=== PATIENT | male | born 1980 | race Caucasian/White ===

== ENCOUNTER 2017-03-19 23:07 | Emergency (ER) | payer BC ==
[2017-03-19] MEDS ORDERED: Aspirin Low Dose CHEW TAB* 81 MG PO ONE (23:45)
[2017-03-20 00:21] LABS: Hematocrit 48 % (42-52); Hemoglobin 16.2 g/dl (14.0-18.0); Mean Corpuscular HGB Conc 34 g/dl (31-36); Mean Corpuscular Hemoglobin 29 pg (27-31); Mean Corpuscular Volume 86 fL (80-94); Mean Platelet Volume 8 um3 (7.4-10.4); Red Cell Distribution Width 13 % (10.5-15)
[2017-03-20 00:38] LABS: Albumin 4.3 g/dL (3.2-5.2); Calcium 9.6 mg/dL (8.6-10.3); EGFR African American 98.5 (>60); EGFR Non-African American 76.6 (>60); Globulin 2.8 g/dL (2-4); Potassium 3.6 mmol/L (3.5-5.0); Total Bilirubin 0.4 mg/dL (0.2-1.0); Total Protein 7.1 g/dL (6.4-8.9)
--- NOTE | 2017-03-20 01:15 | ED ---
Trip Johnson Aidan, scribed for Kelvin Levine on 03/20/17 at 0001 . Hypertension - HPI Summary HPI Summary: 36 y/o male presents to the ED with a complaint of acute, moderate episodes of HTN. He was recently placed on triamterene-HCTZ and has been taking it for the past 2 days. After starting the medication, he has had acute, moderate episodes of dizziness, palpitations, and diaphoresis and SOB on exertion. Currently, he takes Lorazepam and Valsartan. While in the ED, his blood pressure was initially 149/84. It then dropped to 128/84. 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 - Onset/Duration: Started Hours Ago, Resolved - Pt is no longer dizzy and does not currently have HTN Timing: Intermittent, Lasting Hours Aggravating Factor(s): Exertion - causes diaphoresis and SOB Alleviating Factor(s): Other - unknown Associated Signs & Symptoms: SOB - on exertion, Other: - diaphoresis on exertion , palpitations, dizziness - Risk Factors Cardiac Risk Factors: Hypertension - Allergies/Home Medications Allergies/Adverse Reactions: Allergies Allergy/AdvReac Type Severity Reaction Status Date / Time No Known Allergies Allergy Verified 01/03/16 12:10 PMH/Surg Hx/FS Hx/Imm Hx Endocrine/Hematology History: Denies: Hx Diabetes, Hx Thyroid Disease Cardiovascular History: Reports: Hx Hypertension Respiratory History: Denies: Hx Asthma, Hx Chronic Obstructive Pulmonary Disease (COPD) GI History: Denies: Hx Ulcer Psychiatric History: Reports: Hx Anxiety - Surgical History Surgery Procedure, Year, and Place: WISDOM TOOTH EXTRACTION, AGE 19 Infectious Disease History: No Infectious Disease History: Reports: Hx Shingles Denies: Hx Hepatitis, Hx Human Immunodeficiency Virus (HIV), History Other Infectious Disease, Traveled Outside the [place] in Last 30 Days - Family History Known Family History: Positive: Hypertension - Social History Occupation: Employed Full-time Lives: With Family Alcohol Use: Rare Substance Use Type: Reports: None Smoking Status (MU): Never Smoked Tobacco Review of Systems Positive: Skin Diaphoresis. Negative: Fever, Chills, Fatigue Eyes: Negative ENT: Negative Positive: Palpitations, Other - reported HTN. Negative: Chest Pain Positive: Shortness Of Breath. Negative: Cough Gastrointestinal: Negative Genitourinary: Negative Musculoskeletal: Negative Skin: Negative Neurological: Negative Psychological: Normal All Other Systems Reviewed And Are Negative: Yes Physical Exam Triage Information Reviewed: Yes Vital Signs On Initial Exam: Initial Vitals Temp Pulse Resp BP Pulse Ox 97.8 F 88 18 149/84 97 03/19/17 23:09 03/19/17 23:09 03/19/17 23:09 03/19/17 23:09 03/19/17 23:09 Vital Signs Reviewed: Yes Appearance: Positive: Well-Appearing, No Pain Distress Skin: Positive: Warm, Skin Color Reflects Adequate Perfusion, Dry Head/Face: Positive: Normal Head/Face Inspection Eyes: Positive: EOMI, RANDA ENT: Positive: Normal ENT inspection Neck: Positive: Supple, Nontender Respiratory/Lung Sounds: Positive: Clear to Auscultation, Breath Sounds Present Cardiovascular: Positive: Normal, RRR, Pulses are Symmetrical in both Upper and Lower Extremities Abdomen Description: Positive: Nontender, Soft Bowel Sounds: Positive: Present Musculoskeletal: Positive: Normal, Strength/ROM Intact Neurological: Positive: Normal, Sensory/Motor Intact, Alert, Oriented to Person Place, Time Psychiatric: Positive: Normal, Affect/Mood Appropriate AVPU Assessment: Alert - [place] Coma Scale Coma Scale Total: 15 Diagnostics - Vital Signs Vital Signs Temp Pulse Resp BP Pulse Ox 03/19/17 23:45 97.8 F 80 16 128/84 97 03/19/17 23:09 97.8 F 88 18 149/84 97 - Laboratory Result Diagrams: 03/20/17 00:04 03/20/17 00:04 Lab Statement: Any lab studies that have been ordered have been reviewed, and results considered in the medical decision making process. - EKG EKG 0019 Cardiac Rate: NL - 79 BPM EKG Rhythm: Sinus Rhythm EKG Interpretation: NORMAL SINUS RHYTHM Hypertension Course/Dx - Course Course Of Treatment: 36 y/o male presents to the ED with a complaint of acute episodes of dizziness S/P medication change. He just started taking triamterene- HCTZ. Imaging reviewed. Labs reviewed. The patient will be discharged home with a diagnosis of HTN. His blood pressure in the ED was normal. Recommended follow up with PCP and with the ED if symptoms worsen. - Diagnoses Provider Diagnoses: Hypertension Discharge - Discharge Plan Condition: Stable Disposition: HOME Discharge Disposition Comment: Please follow up with primary care within 3 days and return if sx worsen Patient Education Materials: Hypertension (ED) Referrals: Aris Troy MD [Primary Care Provider] - The documentation as recorded by the Trip donald Aidan accurately reflects the service I personally performed and the decisions made by , Kelvin Levine.
[2017-03-20 01:22] VITALS: BP 134/73
--- NOTE | 2017-03-20 07:41 | RAD ---
HISTORY: Shortness of breath COMPARISONS: September 02, 2013 VIEWS: 2: Frontal dual-energy and lateral views of the chest. FINDINGS: CARDIOMEDIASTINAL SILHOUETTE: The cardiomediastinal silhouette is normal. HUMBERTO: The humberto are normal. PLEURA: The costophrenic angles are sharp. No pleural abnormalities are noted. LUNG PARENCHYMA: The lung volumes are low. The lungs are clear. ABDOMEN: The upper abdomen is clear. There is no subphrenic gas. BONES AND SOFT TISSUES: No bone or soft tissue abnormalities are noted. OTHER: None. IMPRESSION: LOW LUNG VOLUMES. NO ACTIVE CARDIOPULMONARY DISEASE.
== END 2017-03-20 01:26 | disposition home or self-care (01) ==
LOC: ED 23:07
DX: I10 Essential (primary) hypertension (principal); R00.2 Palpitations; R06.02 Shortness of breath; R61 Generalized hyperhidrosis
CPT/HCPCS: 36415; 71020; 80053; 83735; 84484; 85025; 93005; 99282

== ENCOUNTER 2017-04-20 15:31 | Emergency (ER) | payer BC ==
[2017-04-20 16:01] VITALS: BP 131/84
--- NOTE | 2017-04-20 16:06 | UC ---
Throat Pain/Nasal Vince HPI - HPI Summary HPI Summary: 36 YEAR OLD PRESENTS WITH COMPLAINS OF SORE THROAT AND SINUS CONGESTION. - History of Current Complaint Chief Complaint: UCGeneralIllness Stated Complaint: ST - 3 WKS Time Seen by Provider: 04/20/17 16:04 Onset/Duration: Gradual Onset Severity: Moderate Pain Scale Used: 0-10 Numeric - 5 - Allergies/Home Medications Allergies/Adverse Reactions: Allergies Allergy/AdvReac Type Severity Reaction Status Date / Time No Known Allergies Allergy Verified 04/20/17 16:01 PMH/Surg Hx/FS Hx/Imm Hx - Surgical History Surgical History: Yes Surgery Procedure, Year, and Place: WISDOM TOOTH EXTRACTION, AGE 19 - Family History Known Family History: Positive: None, Hypertension - Social History Alcohol Use: Rare Substance Use Type: None Smoking Status (MU): Never Smoked Tobacco Review of Systems Constitutional: Negative Skin: Negative Eyes: Negative ENT: Sore Throat, Nasal Discharge, Sinus Congestion Respiratory: Negative Cardiovascular: Negative Gastrointestinal: Negative Genitourinary: Negative Motor: Negative Neurovascular: Negative Musculoskeletal: Negative Neurological: Negative Psychological: Negative All Other Systems Reviewed And Are Negative: Yes Physical Exam Triage Information Reviewed: Yes Vital Signs: Initial Vital Signs Temp 36.2 C 04/20/17 15:57 Pulse 80 04/20/17 15:57 Resp 16 04/20/17 15:57 BP 131/84 04/20/17 15:57 Pulse Ox 97 04/20/17 15:57 Eye Exam: Normal ENT Exam: Normal ENT: Positive: Pharyngeal erythema, Nasal congestion, Nasal drainage Dental Exam: Normal Neck exam: Normal Neck: Positive: 1 Respiratory Exam: Normal Cardiovascular Exam: Normal Abdominal Exam: Normal Musculoskeletal Exam: Normal Musculoskeletal: Positive: ROM Limited @, Other: - RIGHT LATERAL FOOT SPRAIN Neurological Exam: Normal Psychological Exam: Normal Skin Exam: Normal Throat Pain/Nasal Course/Dx - Differential Dx/Diagnosis Provider Diagnoses: SINUS CONGESTION. ALLERGIC RHINNITIS Discharge - Discharge Plan Condition: Stable Disposition: HOME Prescriptions: Amoxicillin CAP* [Amoxicillin 500 MG CAP*] 500 mg PO TID #30 cap LoraTADine TAB(NF) [Claritin 10 MG TAB(NF)] 10 mg PO DAILY #30 tab Magic M W2 Beau/Maal/Nyst/Lido* 15 ml SWISH SPIT QID #120 ml Patient Education Materials: Pharyngitis (ED) Referrals: Aris Troy MD [Primary Care Provider] - If Needed
== END 2017-04-20 16:38 | disposition home or self-care (01) ==
LOC: UCCORT 15:31
DX: J30.9 Allergic rhinitis, unspecified (principal); R09.81 Nasal congestion
CPT/HCPCS: 87651; 99212; G0463

== ENCOUNTER 2017-05-03 16:24 | Emergency (ER) | payer BC ==
[2017-05-03 16:28] VITALS: BP 150/100
[2017-05-03] MEDS ORDERED: Fluorescein Sodium TOPICAL* 1 MG TEST OPHTHALMIC ONE (17:06)
[2017-05-03] MEDS ORDERED: BSS OPTH.SOL* BTL OPHTHALMIC ONE (17:06)
[2017-05-03] MEDS ORDERED: Tetracaine 0.5% OPTH.SOL 4 ML* 1 DROP BTL RIGHT EYE ONE (17:07)
--- NOTE | 2017-05-03 17:12 | UC ---
Eye Complaint HPI - HPI Summary HPI Summary: ciomplaint of bilateral eye itchy after mowing the lawn today flushed both of his eyes then the right eye became swollen and extremelty itchy has some purulent fluid coming out of his eye - History of Current Complaint Hx Obtained From: Patient <Carolee Moran - Last Filed: 05/03/17 17:28> <Marleen Quintero - Last Filed: 05/03/17 18:37> - History of Current Complaint Chief Complaint: UCEye Stated Complaint: EYE COMPLAINT Time Seen by Provider: 05/03/17 16:51 - Allergies/Home Medications Allergies/Adverse Reactions: Allergies Allergy/AdvReac Type Severity Reaction Status Date / Time No Known Allergies Allergy Verified 04/20/17 16:01 PMH/Surg Hx/FS Hx/Imm Hx Previously Healthy: Yes Endocrine History: Dyslipidemia Cardiovascular History: Hypertension Psychological History: Anxiety - Surgical History Surgical History: Yes Surgery Procedure, Year, and Place: WISDOM TOOTH EXTRACTION, AGE 19 - Family History Known Family History: Positive: None, Hypertension Negative: Cardiac Disease, Diabetes - Social History Occupation: Employed Full-time Lives: With Family Alcohol Use: Rare Substance Use Type: None Smoking Status (MU): Never Smoked Tobacco <Carolee Moran - Last Filed: 05/03/17 17:28> Review of Systems Constitutional: Negative Skin: Negative Eyes: Drainage, Eye Redness ENT: Negative Respiratory: Negative Cardiovascular: Negative Gastrointestinal: Negative Genitourinary: Negative Motor: Negative Neurovascular: Negative Musculoskeletal: Negative Neurological: Negative Psychological: Negative All Other Systems Reviewed And Are Negative: Yes <Carolee Moran - Last Filed: 05/03/17 17:28> Physical Exam Triage Information Reviewed: Yes Appearance: No Pain Distress, Well-Nourished Vital Signs: Initial Vital Signs Temp 97.8 F 05/03/17 16:25 Pulse 97 05/03/17 16:25 Resp 16 05/03/17 16:25 BP 150/100 05/03/17 16:25 Pulse Ox 100 05/03/17 16:25 Vital Signs Reviewed: Yes Eyes: Positive: Conjunctiva Inflamed - right, Other: - right eye observed under fluorisceine no foreign objects , corneal abrasions visulaized ENT: Positive: Pharynx normal, TMs normal Neck: Positive: No Lymphadenopathy Respiratory: Positive: Lungs clear, Normal breath sounds, No respiratory distress, No accessory muscle use Cardiovascular: Positive: RRR, No Murmur, Pulses Normal Abdomen Description: Positive: Nontender, Soft Bowel Sounds: Positive: Present Musculoskeletal: Positive: No Edema Neurological: Positive: Alert Psychological Exam: Normal Skin Exam: Normal <Carolee Moran - Last Filed: 05/03/17 17:28> Vital Signs: Initial Vital Signs Temp 97.8 F 05/03/17 16:25 Pulse 97 05/03/17 16:25 Resp 16 05/03/17 16:25 BP 150/100 05/03/17 16:25 Pulse Ox 100 05/03/17 16:25 <Marleen Quintero - Last Filed: 05/03/17 18:37> Eye Complaint Course/Dx - Course Course Of Treatment: exam completed. will treat for conjunctivitis- no foreign objects or abrasions seen - Differential Dx/Diagnosis Differential Diagnosis/HQI/PQRI: Conjunctivitis, Corneal Abrasion, Foreign Body Provider Diagnoses: conjunctivitis <Carolee Moran - Last Filed: 05/03/17 17:28> Discharge <DeanCarolee - Last Filed: 05/03/17 17:28> <Marleen Quintero - Last Filed: 05/03/17 18:37> - Discharge Plan Condition: Stable Disposition: HOME Prescriptions: Tobramycin (Ophth) [Tobrex] 0.3 % RIGHT EYE Q4HR #1 barry Patient Education Materials: Conjunctivitis (ED) Referrals: Aris Troy MD [Primary Care Provider] - Additional Instructions: CONJUNCTIVITIS What is Conjunctivitis? Conjunctivitis is redness and swelling of the conjunctiva, the thin transparent layer that lines the inner eyelid and covers the white part of the eye. The three main types of conjunctivitis are infectious, allergic, and chemical. The infectious type, commonly called "pink eye," is caused by a contagious virus or by bacteria. Your body's allergies to pollen, cosmetics, animals or fabrics often bring on allergic conjunctivitis. Irritants like air pollution, noxious fumes and chlorine in swimming pools may produce the chemical form. Symptoms Might Include: More tearing Eye pain Redness in the eyes Gritty feeling in the eyes Itching of the eye Blurred vision Sensitivity to light Crusts that form on the eyelid overnight Treatment Recommendations: Use eye drops or ointment as directed. Do not rub or touch your eyes. Wash your hands frequently. Use cool compresses to relieve pain and itching. Prevention: Do not share eye make-up. Replace eye make-up frequently. Do not share towels, washcloths, etc. Do not share eye drops. Do not wear contact lenses while you have conjunctivitis. Call Your Doctor or Return Here IF: Your symptoms worsen or do not improve in 3 to 4 days. You have problems with, or loss of, your vision. You have a significant increase in pain. You have any new symptoms that worry you. Attestation Statement User Type: Provider - I was available for consult. This patient was seen by the [facility]. The patient was not presented to, seen by, or examined by me. -Gabriela <Marleen Quintero - Last Filed: 05/03/17 18:37>
== END 2017-05-03 17:30 | disposition home or self-care (01) ==
LOC: UCEAST 16:24
DX: H10.9 Unspecified conjunctivitis (principal)
CPT/HCPCS: 99212; A9270-GY; G0463

== ENCOUNTER 2017-07-28 20:28 | Emergency (ER) | payer BC ==
[2017-07-28 20:40] VITALS: BP 170/107
[2017-07-28] MEDS ORDERED: Ketorolac INJ* 30 MG/ML 1 ML VIAL IM ONE (21:32)
--- NOTE | 2017-07-28 21:46 | UC ---
Shoulder Pain HPI - HPI Summary HPI Summary: left shoulder pain today no injury now unable to abduct he uis right handed - History of Current Complaint Chief Complaint: UCUpperExtremity Stated Complaint: LEFT SHOULDER PAIN Hx Obtained From: Patient Onset/Duration: Gradual Onset, Lasting Hours Timing: Constant Severity Initially: Moderate Severity Currently: Moderate Pain Intensity: 7 Pain Scale Used: 0-10 Numeric Character: Aching, Throbbing Aggravating Factor(s): Movement, Lifting, External Rotation, Abduction Alleviating Factor(s): Rest Associated Signs And Symptoms: Positive: Negative Related History: Dominant Hand Right - Allergies/Home Medications Allergies/Adverse Reactions: Allergies Allergy/AdvReac Type Severity Reaction Status Date / Time No Known Allergies Allergy Verified 07/28/17 20:40 PMH/Surg Hx/FS Hx/Imm Hx Previously Healthy: Yes - DENISE Cardiovascular History: Hypertension - Surgical History Surgical History: Yes Surgery Procedure, Year, and Place: WISDOM TOOTH EXTRACTION, AGE 19 - Family History Known Family History: Positive: Hypertension Negative: Cardiac Disease, Diabetes - Social History Alcohol Use: Rare Substance Use Type: None Smoking Status (MU): Never Smoked Tobacco Review of Systems Constitutional: Negative Skin: Negative Eyes: Negative ENT: Negative Respiratory: Negative Cardiovascular: Negative Gastrointestinal: Negative Genitourinary: Negative Motor: Negative Neurovascular: Negative Musculoskeletal: Arthralgia Neurological: Negative Psychological: Negative Is Patient Immunocompromised?: No All Other Systems Reviewed And Are Negative: Yes Physical Exam Triage Information Reviewed: Yes Appearance: Well-Appearing, No Pain Distress, Well-Nourished Vital Signs: Initial Vital Signs Temp 97.2 F 07/28/17 20:33 Pulse 79 07/28/17 20:33 Resp 22 07/28/17 20:33 BP 170/107 07/28/17 20:33 Pulse Ox 96 07/28/17 20:33 Vital Signs Reviewed: Yes Eyes: Positive: Conjunctiva Clear ENT: Positive: Hearing grossly normal. Negative: Nasal congestion, Trismus, Muffled/hoarse voice Neck: Positive: Supple, Nontender Respiratory: Positive: Lungs clear, Normal breath sounds, No respiratory distress, No accessory muscle use Musculoskeletal: Positive: ROM Limited @ - right shoulder/tender priox humerus/ pain with abduction and ext rotation Neurological: Positive: Alert, Muscle Tone Normal Psychological Exam: Normal Skin: Positive: rashes Diagnostics - Radiology No standard instances Xray Interpretation: Positive (See Comments) - calcific tendonitis Radiology Interpretation Completed By: ED Physician Shoulder Course/Dx - Differential Dx/Diagnosis Provider Diagnoses: calcific tendonitis left shoulder Discharge - Discharge Plan Condition: Stable Disposition: HOME Patient Education Materials: Calcific Tendinitis (ED) Referrals: Ned Azar MD [Medical Doctor] - 3 Days Aris Troy MD [Primary Care Provider] - Additional Instructions: motrin 200mg 3 pills 4x day with food for pain heat massage pendulum shoulder motions as discussed recheck with ortho
--- NOTE | 2017-07-28 22:03 | RAD ---
Indication: Aching pain LEFT shoulder worsening over the day. Painful limited range of motion. Comparison: No relevant prior exams available on the [facility] for comparison. Technique: Internal rotation AP, external rotation Grashey, scapular Y, axillary views LEFT shoulder Report: Normal acromioclavicular and glenohumeral joint alignment. Negative for fracture Subtle calcific tendinopathy at the level of the supraspinatus tendon insertion. Unremarkable soft tissue contours. IMPRESSION: Calcific tendinopathy of the rotator cuff.
== END 2017-07-28 22:03 | disposition home or self-care (01) ==
LOC: UCCORT 20:28
DX: M75.32 Calcific tendinitis of left shoulder (principal)
CPT/HCPCS: 93005; 96372; 99211; G0463; J1885

== ENCOUNTER 2018-04-28 11:33 | Emergency (ER) | payer BC ==
--- OUTSIDE RECORDS SUMMARY | 2018-04-28 12:00 | XMS REPORT ---
:1980 External Reference #:[id number] Author Organization [facility] Address [address] [place] [address] Phone [phone] Care Team Providers Name Role Phone Aris Troy MD Primary Care Physician Unavailable Payers Type Date Identification Numbers Payment Provider Subscriber Health Maintenance Policy Number: [facility] ([facility]) [id number] PayID: [id number] [place] [id number] Problems Date Description Provider Status Onset: 2015 Difficulty breathing Regi Perry MD Active Onset: 2015 Obesity Regi Perry MD Active Onset: 02/02/2016 Obstructive sleep apnea syndrome Regi Perry MD Active Family History Date Family Member(s) Problem(s) Comments General Diverticulitis General Arthritis General Depression General Diabetes Type II General Hypertension General Ovarian Cancer General Melanoma Father Diabetes Type II Father Depression Father Arthritis Mother Hypertension Mother Ovarian Cancer Mother Melanoma Siblings 2 Siblings 2 brothers unknown health history Social History Type Date Description Comments Marital Status Lives With Spouse Lives With Son Occupation [employer] Occupation Currently Working Cigarette Use Never Smoked Cigarettes ETOH Use Rarely consumes alcohol Smoking Patient has never smoked Recreational Drug Use Denies Drug Use Daily Caffeine Consumes on average 1 cup of regular coffee per day Exercise Type/Frequency Exercises rarely Allergies, Adverse Reactions, Alerts Date Description Reaction Status Severity Comments 2015 Atenolol active 2015 Lisinopril active 11/27/2013 NKDA inactive Medications Medication Date Status Form Strength Qnty SIG Indications Ordering Provider Stephan Active Tablets 80mg 1 by mouth Unknown 016 every day Lorazepam Active Tablets 0.5mg as directed Unknown 016 Valsartan Active Tablets 80mg Take 1 Unknown 000 Tablet By Mouth Every Day Amlodipine Hx Tablets 10mg 1 by mouth Unknown Besylate 016 - every day 016 Vicodin Hx Tablets 5-300mg 60tabs take 1 po q Unknown 000 - 6 hours prn 014 Atenolol Hx Tablets 25mg 90tabs 1 po qd Unknown 000 - 016 Medications Administered in Office Medication Date Status Form Strength Qnty SIG Indications Ordering Provider Celestone 3 mg Administered Injection Ned Rommel and 3mg 017 MD Doe Vital Signs Date Vital Result Comment 04/11/2018 Height 74 inches 6'2" Weight 313.00 lb Heart Rate 72 /min BP Systolic Sitting 160 mmHg Lue large cuff BP Diastolic Sitting 112 mmHg Lue large cuff BP Systolic Recheck 150 mmHg Lue large cuff BP Diastolic Recheck 102 mmHg Lue large cuff Respiratory Rate 18 /min O2 % BldC Oximetry 95 % On Ra BMI (Body Mass Index) 40.2 kg/m2 08/03/2017 Height 74 inches 6'2" Weight 290.00 lb Heart Rate 71 /min BP Systolic Sitting 146 mmHg BP Diastolic Sitting 96 mmHg Respiratory Rate 18 /min Pain Level 3 BMI (Body Mass Index) 37.2 kg/m2 03/17/2016 Height 74 inches 6'2" Weight 300.00 lb Heart Rate 70 /min BP Systolic Sitting 152 mmHg BP Diastolic Sitting 89 mmHg Respiratory Rate 18 /min O2 % BldC Oximetry 98 % BMI (Body Mass Index) 38.5 kg/m2 02/02/2016 Height 74 inches 6'2" Weight 296.00 lb Heart Rate 88 /min BP Systolic 162 mmHg BP Diastolic 98 mmHg Respiratory Rate 14 /min O2 % BldC Oximetry 97 % BMI (Body Mass Index) 38.0 kg/m2 2015 Height 74 inches 6'2" Weight 302.25 lb Heart Rate 82 /min BP Systolic 160 mmHg BP Diastolic 110 mmHg BP Systolic Sitting 158 mmHg BP Diastolic Sitting 118 mmHg Respiratory Rate 16 /min O2 % BldC Oximetry 97 % BMI (Body Mass Index) 38.8 kg/m2 Neck Circumference in inches 18 11/27/2013 Height 74 inches 6'2" Weight 280.00 lb Heart Rate 88 /min BP Systolic Sitting 124 mmHg BP Diastolic Sitting 82 mmHg BMI (Body Mass Index) 35.9 kg/m2 Results Test Date Test Result H/L Range Note Comp Metabolic Panel 02/12/2018 Sodium 141 mmol/L 139-145 Potassium 4.0 mmol/L 3.5-5.0 Chloride 107 mmol/L 101-111 Co2 Carbon Dioxide 28 mmol/L 22-32 Anion Gap 6 mmol/L 2-11 Calcium 9.2 mg/dL 8.6-10.3 Albumin 4.5 g/dL 3.2-5.2 Total Bilirubin 0.60 mg/dL 0.2-1.0 Glucose 92 mg/dL 70-100 Blood Urea Nitrogen 16 mg/dL 6-24 Creatinine 0.98 mg/dL 0.67-1.17 BUN/Creatinine Ratio 16.3 8-20 Total Protein 6.8 g/dL 6.4-8.9 Globulin 2.3 g/dL 2-4 Albumin/Globulin Ratio 2.0 1-3 Alkaline Phosphatase 86 U/L 34-104 Alt 39 U/L 7-52 Ast 21 U/L 13-39 Egfr Non- 87.0 >60 Egfr 111.9 >60 1 Laboratory test finding 02/12/2018 LDH 163 U/L 140-271 C Reactive Protein 4.47 mg/L < 5.00 2 CBC Auto Diff 02/12/2018 White Blood Count 7.6 10^3/uL 3.5-10.8 Red Blood Count 5.36 10^6/uL 4.0-5.4 Hemoglobin 15.6 g/dL 14.0-18.0 Hematocrit 46 % 42-52 Mean Corpuscular Volume 85 fL 80-94 Mean Corpuscular Hemoglobin 29 pg 27-31 Mean Corpuscular HGB Conc 34 g/dL 31-36 Red Cell Distribution Width 13 % 10.5-15 Platelet Count 264 10^3/uL 150-450 Mean Platelet Volume 8.1 um3 7.4-10.4 Abs Neutrophils 4.8 10^3/uL 1.5-7.7 Abs Lymphocytes 2.0 10^3/uL 1.0-4.8 Abs Monocytes 0.6 10^3/uL 0-0.8 Abs Eosinophils 0.2 10^3/uL 0-0.6 Abs Basophils 0 10^3/uL 0-0.2 Abs Nucleated RBC 0 10^3/uL Granulocyte % 63.2 % 38-83 Lymphocyte % 26.2 % 25-47 Monocyte % 7.3 % High 0-7 Eosinophil % 2.8 % 0-6 Basophil % 0.5 % 0-2 Nucleated Red Blood Cells % 0.5 Laboratory test finding 02/12/2018 Erythrocyte Sed Rate 9 mm/Hr 0-14 Leukemia/Lymphoma Phenot 02/12/2018 Path Interpretation 2-8 (SEE NOTE) 3 Marker Path Interpret 9-15 Marker TNP Path Interpret > 16 Marker TNP BCR/Abl Trans 9:22 Fish 02/12/2018 BCR/abl (Fish) Result Summary Normal BCR/abl (Fish) Result Table See Comment 4 BCR/abl (Fish) Specimen Blood BCR/abl (Fish) Referral Reason See Comment 5 BCR/abl (Fish) Method See Comment 6 BCR/abl Results See Comment 7 BCR/abl (Fish) Interpretation See Comment 8 BCR/abl (Fish) Disclaimer See Comment 9 BCR/abl (Fish) Released By See Comment 10 Myeloprolif Neoplasm With 02/12/2018 MPNR Result see interpretati <SEE NOTE > 11 RFX MPNR Final Diagnosis See Comment 12 1 Because ethnic data is not always readily available, this report includes an eGFR for both -Americans and non- Americans. The National Kidney Disease Education Program (NKDEP) does not endorse the use of the MDRD equation for patients that are not between the ages of 18 and 70, are , have extremes of body size, muscle mass, or nutritional status, or are non- or non-. According to the National Kidney Foundation, irrespective of diagnosis, the stage of the disease is based on the level of kidney function: Stage Description GFR(mL/min/1.73 m(2)) 1 Kidney damage with normal or decreased GFR 90 2 Kidney damage with mild decrease in GFR 60-89 3 Moderate decrease in GFR 30-59 4 Severe decrease in GFR 15-29 5 Kidney failure <15 (or dialysis) 2 Acute inflammation: >10.00 3 FINAL DIAGNOSIS: Specimen Source: Peripheral blood Flow cytometry immunophenotypic analysis: No evidence of an immunophenotypically abnormal cell population. Interpretative data: Blasts: 0% of gated events Lymphocytes: 42% of gated events B-cells: 10% of lymphs; kappa:lambda within normal limits T-cells/NK cells: No aberrant population detected. Markers tested: CD3, CD10, CD16, CD19, CD34, CD45, kappa surface light chains, lambda surface light chains, 7-AAD. Quality Assessment: Acceptable Viability: Acceptable Viable lymphocytes (7-AAD): 100% Specimen received within validated guidelines. A Burr-Giemsa stained slide prepared from the flow cytometry specimen was examined for quality purposes. Electronically signed by: Tona Bain MD 02/14/18 1606 Technical component performed by: [address] [address] Film Numberer: Jak Mayes II, MD, PhD. 4 Abnormality Name Result Abn Cutoff (%) (%) t(9;22) ABL1/BCR fusion Normal <0.6 5 RESULT: D72.829- elevated white blood cell count, unspecified 6 Locus and probes [Strategy;#Nuclei;Class] 9q34(ABL1),22q11.2(BCR) [DFISH;500;ASR] Probe strategy includes: DFISH=dual color, double fusion. 7 nuc cathy(ABL1,BCR)x2[500] Of 500 nuclei, 0% had fusion of BCR and ABL1. 8 The result is within normal limits for the BCR and ABL1 gene regions. 9 Analyte Specific Reagent (ASR). This test was developed using an analyte specific reagent. Its performance characteristics were determined by [facility] in a manner consistent with CLIA requirements. This test has not been cleared or approved by the U.S. Food and Drug Administration. This FISH test does not rule out other chromosome abnormalities. 10 RESULT: Loan Jarquin M.D. Test Performed by: [address] [address] 11 see interpretation 12 Peripheral blood, JAK2 V617F mutation analysis: Negative for JAK2 V617F. Method summary - JAK2 V617F analysis: Quantitative, allele-specific polymerase chain reaction (PCR) assay was performed using extracted genomic DNA to evaluate for the point mutation causing JAK2 V617F. The analytic sensitivity of this assay has been determined at 0.06% (see [facility] Interpretive Handbook for method details). Peripheral blood, CALR mutation analysis, exon 9. Negative. No deletion or insertion was detected in CALR, exon 9. Method Summary - CALR: Exon 9 of CALR was amplified from genomic DNA by polymerase chain reaction (PCR). The size of the PCR product was analyzed by capillary electrophoresis on the THOR 3130xl Genetic Analyzer. The analytic sensitivity of this assay is approximately 6% for the majority of CALR mutations and is approximately 20% for the rare type 1-bp deletion (See [facility] Interpretive Handbook for details). Peripheral blood, MPL exon 10 mutation analysis: Negative. No mutation was detected in MPL, exon 10. Method summary - MPL exon 10 mutation analysis: Genomic DNA was extracted and Humphrey sequencing used to evaluate for mutations in MPL, exon 10 (see [facility] Interpretive Handbook for method details). The sensitivity of this assay is approximately 20%, such that samples containing lower percentages of mutated DNA will appear negative. Comment: Negative results for [id number], CALR exon 9, and MPL exon 10 mutations do not exclude the diagnosis of a myeloproliferative neoplasm. Correlation with clinical and morphologic finding is recommended for a definitive diagnosis. Samples containing mutations in these genes at levels below the analytical sensitivity of each assay may not be detected by these methods. If there are persistent unexplained erythrocytosis, JAK2 Exon 12 analysis could be considered (JAKXB or JAKXM) to rule out polycythemia vera (PV). Signing Pathologist: Hoang Snow M.D. ADDITIONAL INFORMATION This test was developed and its performance characteristics determined by [facility] in a manner consistent with CLIA requirements. This test has not been cleared or approved by the U.S. Food and Drug Administration. Test Performed by: [facility] - [address], [place] [address] Procedures Date CPT Code Description Status 08/03/2017 74678 Inject/Drain Joint/Bursa Major W/O US Completed 01/17/2016 59637 Sleep Study Unattended,HRT Rate,Oxygen Sat,Resp Completed Effort/Airflow 12/11/2013 90901 Rad Exam; Hand Limited Completed 11/27/2013 04793 Closed TX Metacarpal FX Single W/O Manipulation, Ea Completed Bone Encounters Type Date Location Provider CPT E/M Dx Office Visit 02/26/2018 [facility] Jessica Lockett M.D. 32130 D72.829 8:40a Of [facility] AT [place] [address]. Office Visit 02/12/2018 8:00a [facility] Jessica Lockett 84298 D72.829 Of [facility] Ranjith Office Visit 08/03/2017 9:00a [place] [address] M75.32 Of [facility] Office Visit 03/17/2016 9:15a [facility] [address] G47.33 Services Of [facility] E66.09 Office Visit 02/02/2016 9:30a [facility] [address] G47.33 Services Of [facility] E66.09 Office Visit 2015 9:30a [place] [address] R06.83 Services Of [facility] E66.09 Plan of Care Future Appointment(s):07/18/2018 2:15 pm - Leonarda Packer DNP, RN, DIRECTOR SUPPLIER QUALITY-BC at [facility] Services Of [facility]04/11/2018 - Leonarda Packer DNP, RN, DIRECTOR SUPPLIER QUALITY- BCG47.33 Obstructive sleep apnea (adult) (pediatric)Follow up:3 monthsRecommendations:Continue PAP device, Benefitting and compliant with treatment. Cleaning Wipe off mask daily (baby wipe-no scent, or warm water) Clean mask, tubing, filter, and water chamber weekly in mild no scent dish soap and water. Hang to dry. So-Clean is an option (not covered by insurance) If you have any sleepiness while driving you MUST avoid operating a vehicle or machinery. If you have difficulty with your equipment, or need to replace your mask or hoses, please contact your homecare agency. A weight change of 20 pounds or more may have an effect on your equipment; if you are experiencing problems please call for an appointment. If you have any further questions, please call the [facility] at [phone].i15.1 Secondary hypertension, unspecifiedRecommendations:Repeat BP 150/102: please consult with primary care If you have headache, check your blood pressure,if elevated do not take ibuprofen, naproxen (Advil or Aleve).Z68.41 Body mass index (BMI) 40.0-44.9 , adultReferral:Estrellita Robbins MD, Internal MedicineRecommendations: Medically supervised weight loss
--- NOTE | 2018-04-28 12:11 | UC ---
Back Pain HPI - HPI Summary HPI Summary: Patient felt a pop in his low back had some pain which resolved with rest and ibuprofen, was working, bent over felt a pop and had severe pain that radiated down the right leg. sitting is ok, standing and bending causes pain - History of Current Complaint Stated Complaint: LOW BACK PAIN Time Seen by Provider: 04/28/18 12:02 Hx Obtained From: Patient Onset/Duration: Sudden Onset, Lasting Days Timing: Constant Severity Initially: Moderate Severity Currently: Moderate Back Pain: Radiates To - right Character: Sharp, Aching, Spasmodic Aggravating Factor(s): Movement, Bending, Walking Alleviating Factor(s): Rest - Allergies/Home Medications Allergies/Adverse Reactions: Allergies Allergy/AdvReac Type Severity Reaction Status Date / Time No Known Allergies Allergy Verified 07/28/17 20:40 Home Medications: Home Medications Fluoxetine HCl [Prozac] 10 mg PO DAILY 04/28/18 [History Confirmed 04/28/18] PMH/Surg Hx/FS Hx/Imm Hx Previously Healthy: Yes - Surgical History Surgical History: Yes Surgery Procedure, Year, and Place: WISDOM TOOTH EXTRACTION, AGE 19 - Family History Known Family History: Positive: None, Hypertension Negative: Cardiac Disease, Diabetes - Social History Alcohol Use: Rare Substance Use Type: None Smoking Status (MU): Never Smoked Tobacco Review of Systems Constitutional: Negative Skin: Negative Eyes: Negative ENT: Negative Respiratory: Negative Cardiovascular: Negative Gastrointestinal: Negative Genitourinary: Negative Motor: Negative Neurovascular: Negative Musculoskeletal: Arthralgia, Decreased ROM, Myalgia Neurological: Negative Psychological: Negative Is Patient Immunocompromised?: No All Other Systems Reviewed And Are Negative: Yes Physical Exam Triage Information Reviewed: Yes Appearance: Well-Appearing, Pain Distress, Obese Vital Signs Reviewed: Yes Eye Exam: Normal ENT Exam: Normal Dental Exam: Normal Neck exam: Normal Respiratory Exam: Normal Respiratory: Positive: Chest non-tender, Lungs clear, Normal breath sounds Cardiovascular Exam: Normal Cardiovascular: Positive: RRR, No Murmur, Pulses Normal Abdominal Exam: Normal Abdomen Description: Positive: Nontender, No Organomegaly, Soft Bowel Sounds: Positive: Present Musculoskeletal: Positive: No Edema, ROM Limited @ - in flx and ext, rotation of luymbar spine Neurological Exam: Normal Psychological Exam: Normal Skin Exam: Normal Back Pain Course/Dx - Course Course Of Treatment: hx obtained, exam performed ,meds reviewed, xray obtained and is negative recommend PT patient states he prefers his chiropractor - Differential Dx/Diagnosis Differential Diagnosis/HQI/PQRI: Herniated Disc, Strain, Sprain Provider Diagnoses: low back pain, muscle strain Discharge - Sign-Out/Discharge Documenting (check all that apply): Patient Departure - Discharge Plan Condition: Stable Disposition: HOME Patient Education Materials: Low Back Strain (ED), Core Strengthening Exercises (GEN) Referrals: Aris Troy MD [Primary Care Provider] - Additional Instructions: 1. continue with the naproxen for pain and inflammation 2. I am including a handout of core strengthening exercises. 3. I recommend follow up with your chiropractor or Physical therapy if stretching is not helping. - Billing Disposition and Condition Condition: STABLE Disposition: Home
[2018-04-28 12:16] VITALS: BP 154/98
--- NOTE | 2018-04-28 13:00 | RAD ---
INDICATION: Low back pain with radiation down the right lower extremity COMPARISON: Similar radiograph dated June 15, 2015 TECHNIQUE: 2 views of the lumbar spine were obtained. FINDINGS: The vertebra are in normal alignment. No fracture is seen. Disc spaces appear maintained. IMPRESSION: No evidence of fracture or subluxation.
== END 2018-04-28 13:21 | disposition home or self-care (01) ==
LOC: UCCORT 11:33
DX: S39.012A Strain of muscle, fascia and tendon of lower back, initial encounter (principal); M54.5 Low back pain; X50.9XXA Other and unspecified overexertion or strenuous movements or postures, initial encounter; Y92.9 Unspecified place or not applicable
CPT/HCPCS: 72100; 99211; G0463

== ENCOUNTER 2018-05-20 17:43 | Emergency (ER) | payer BC ==
--- NOTE | 2018-05-20 18:17 | ED ---
Head Injury - HPI Summary HPI Summary: This is shabana Vazquez documenting for attending Quique Dangelo MD. This patient is a 37 year old M presenting to [facility] accompanied by his partner after an overhead door hit his head around noon today while at work. The patient rates the pain 5/10 in severity. Patient reports neck pain, near syncope , blurred vision in the left eye, STOUT, and dizziness. Patient denies numbness, weakness, and difficulty walking. - History Of Current Complaint Chief Complaint: EDHeadInjury Stated Complaint: HEAD & NECK INJURY Time Seen by Provider: 05/20/18 18:07 Hx Obtained From: Patient Mechanism Of Injury: Blunt Trauma Onset/Duration: Started Hours Ago, Still Present Onset of Pain: Immediate Severity Currently: Moderate Severity Initially: Moderate Pain Intensity: 5 Pain Scale Used: 0-10 Numeric Location of Head Injury: Diffuse Associated Signs And Symptoms: Negative - numbness, weakness, difficulty walking ,, Other: - neck pain, near syncope, blurred vision in the left eye, STOUT, and dizziness - Allergies/Home Medications Allergies/Adverse Reactions: Allergies Allergy/AdvReac Type Severity Reaction Status Date / Time No Known Allergies Allergy Verified 05/20/18 17:57 PMH/Surg Hx/FS Hx/Imm Hx Endocrine/Hematology History: Denies: Hx Diabetes, Hx Thyroid Disease Cardiovascular History: Reports: Hx Hypertension - ON MEDS Respiratory History: Denies: Hx Asthma, Hx Chronic Obstructive Pulmonary Disease (COPD) GI History: Denies: Hx Ulcer EENT History: Denies: Hx Deafness Neurological History: Reports: Other Neuro Impairments/Disorders - concussions Denies: Hx Developmental Delay Psychiatric History: Reports: Hx Anxiety - Surgical History Surgery Procedure, Year, and Place: WISDOM TOOTH EXTRACTION, AGE 19 Infectious Disease History: No Infectious Disease History: Reports: Hx Shingles Denies: Hx Clostridium Difficile, Hx Hepatitis, Hx Human Immunodeficiency Virus (HIV), Hx of Known/Suspected MRSA, Hx Tuberculosis, Hx Known/Suspected VRE , Hx Known/Suspected VRSA, History Other Infectious Disease, Traveled Outside the [place] in Last 30 Days - Family History Known Family History: Positive: Hypertension Negative: Cardiac Disease, Diabetes - Social History Alcohol Use: Rare Substance Use Type: Reports: None Smoking Status (MU): Never Smoked Tobacco Review of Systems Constitutional: Other - head injury Positive: Blurred Vision - left eye Positive: Other - neck pain Neurological: Other - dizziness Positive: Headache, Syncope - near All Other Systems Reviewed And Are Negative: Yes Physical Exam - Summary Physical Exam Summary: Appearance: Well appearing, no pain distress Skin: warm, dry, reflects adequate perfusion Head/face: no madrid signs, no raccoon eyes, there is a small scalp hematoma in the left apical region that is only noticeable because his head is shaved and even now it is diffcult to see Eyes: EOMI, RANDA, visual acuity reveals 20/30 left eye and 20/30 right eye. 20/ 20 with both eyes open ENT: normal ,no hemotympanum, Neck: supple, non-tender Respiratory: CTA, breath sounds present Cardiovascular: RRR, pulses symmetrical Abdomen: non-tender, soft Bowel Sounds: present Musculoskeletal: normal, strength/ROM intact Neuro: normal, sensory motor intact, A&Ox3, normal proprioception, gait is normal , cerebellar function is intact Triage Information Reviewed: Yes Vital Signs On Initial Exam: Initial Vitals Temp Pulse Resp BP Pulse Ox 100 F 74 16 178/102 97 05/20/18 17:50 05/20/18 17:50 05/20/18 17:50 05/20/18 17:50 05/20/18 17:50 Vital Signs Reviewed: Yes Diagnostics - Vital Signs Vital Signs Temp Pulse Resp BP Pulse Ox 05/20/18 17:50 100 F 74 16 178/102 97 - Laboratory Lab Statement: Any lab studies that have been ordered have been reviewed, and results considered in the medical decision making process. Head Injury Course/Dx Course Of Treatment: Patient with direct impact to the apical scalp with tiny cephalhematoma. No severe headaches but minor likely concussive symptoms. His vision is subjectively blurred patient is acuities are normal and symmetric. 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 He has neurologically normal at present with normal gait, cerebellar function. 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 He is off work this week due to vacation and was given concussion precautions. We find no indication for imaging with a GCS of 15 and only minor symptoms at this point. He has also over 6 hours from time of injury. - Diagnoses Provider Diagnoses: Closed head injury, Concussion Discharge - Sign-Out/Discharge Documenting (check all that apply): Patient Departure - Discharge Plan Condition: Good Disposition: HOME Patient Education Materials: Concussion (ED) Referrals: Aris Troy MD [Primary Care Provider] - Additional Instructions: Tylenol, ibuprofen as needed. Stay well-hydrated. Stay in a quite, darkened environment. Avoid fine print reading, computer screens or electronic devices. Return with severe headache, weakness, difficulty with walking, worse, new symptoms or other concerns as discussed. Follow up closely with your primary care physician this week. Report this incident to your workplace children's service supervisor. - Billing Disposition and Condition Condition: GOOD Disposition: Home
[2018-05-20 18:35] VITALS: BP 168/99
== END 2018-05-20 18:34 | disposition home or self-care (01) ==
LOC: ED 17:43
DX: S06.0X9A Concussion with loss of consciousness of unspecified duration, initial encounter (principal); W22.8XXA Striking against or struck by other objects, initial encounter; Y93.89 Activity, other specified; Y92.9 Unspecified place or not applicable; Y99.0 Civilian activity done for income or pay; I10 Essential (primary) hypertension; Z82.49 Family history of ischemic heart disease and other diseases of the circulatory system
CPT/HCPCS: 99282

== ENCOUNTER 2019-01-17 14:37 | Emergency (ER) | payer BC ==
[2019-01-17 14:55] VITALS: BP 170/108
--- NOTE | 2019-01-17 15:17 | UC ---
Throat Pain/Nasal Vince HPI - HPI Summary HPI Summary: 38-year-old male comes in with chief complaint of sore throat. Started about 4 days ago. Gradually getting worse. Tonsils of gotten bigger and have white exudates on them. Using throat lozenges but they are not helping the pain. Worse with swallowing. No difficulty breathing. He does have some body aches also. - History of Current Complaint Chief Complaint: UCRespiratory Stated Complaint: SORE THROAT,FATIGUE Time Seen by Provider: 01/17/19 15:03 Pain Intensity: 5 - Allergies/Home Medications Allergies/Adverse Reactions: Allergies Allergy/AdvReac Type Severity Reaction Status Date / Time No Known Allergies Allergy Verified 01/17/19 14:52 Home Medications: Home Medications LORazepam TAB(*) [Ativan 0.5 MG TAB (*)] 1 tab BID 01/17/19 [History Confirmed 01/17/19] PMH/Surg Hx/FS Hx/Imm Hx Previously Healthy: Yes - Surgical History Surgical History: Yes Surgery Procedure, Year, and Place: WISDOM TOOTH EXTRACTION, AGE 19 - Family History Known Family History: Positive: Hypertension Negative: Cardiac Disease, Diabetes - Social History Alcohol Use: Rare Substance Use Type: None Smoking Status (MU): Never Smoked Tobacco Review of Systems All Other Systems Reviewed And Are Negative: Yes Constitutional: Positive: Negative Skin: Positive: Negative Eyes: Positive: Negative ENT: Positive: Sore Throat Respiratory: Positive: Negative Cardiovascular: Positive: Negative Gastrointestinal: Positive: Negative Motor: Positive: Negative Neurovascular: Positive: Negative Musculoskeletal: Positive: Myalgia Neurological: Positive: Negative Psychological: Positive: Negative Is Patient Immunocompromised?: No Physical Exam Triage Information Reviewed: Yes Appearance: No Pain Distress, Well-Nourished, Ill-Appearing - MILD Vital Signs: Initial Vital Signs Temp 98.3 F 01/17/19 14:52 Pulse 81 01/17/19 14:52 Resp 16 01/17/19 14:52 BP 170/108 01/17/19 14:52 Pulse Ox 100 01/17/19 14:52 Vital Signs Reviewed: Yes Eye Exam: Normal Eyes: Positive: Conjunctiva Clear ENT: Positive: Pharyngeal erythema, Nasal congestion, TMs normal, Tonsillar swelling - 2+ B/L, Tonsillar exudate, Other - NO PERITONSILLAR ABSCESS ON EXAM. Negative: Muffled voice, Hoarse voice Neck exam: Normal Neck: Positive: Supple Respiratory: Positive: Lungs clear, Normal breath sounds, No respiratory distress Cardiovascular: Positive: RRR Musculoskeletal Exam: Normal Musculoskeletal: Positive: Strength Intact, ROM Intact Neurological Exam: Normal Neurological: Positive: Alert, Muscle Tone Normal Psychological Exam: Normal Psychological: Positive: Normal Response To Family, Age Appropriate Behavior Skin Exam: Normal Throat Pain/Nasal Course/Dx - Differential Dx/Diagnosis Provider Diagnosis: Tonsillitis Discharge - Sign-Out/Discharge Documenting (check all that apply): Patient Departure All imaging exams completed and their final reports reviewed: No Studies - Discharge Plan Condition: Stable Disposition: HOME Prescriptions: Amoxicillin/Clavulanate TAB* [Augmentin TAB 875*] 875 mg PO BID #20 tab Magic Mouth Was-VICENTE/MAAL/LIDO* 5 ml SWISH SWAL QID PRN #120 ml PRN Reason: Pain Patient Education Materials: Tonsillitis (ED) Referrals: Aris Troy MD [Primary Care Provider] - Lionel Nova MD [Medical Doctor] - Additional Instructions: FOLLOW UP WITH ENT IF NOT COMPLETELY IMPROVED. GET REEVALUATED SOONER FOR ANY WORSENING OF YOUR CONDITION OR ANY QUESTIONS OR CONCERNS. - Billing Disposition and Condition Condition: STABLE Disposition: Home
== END 2019-01-17 15:24 | disposition home or self-care (01) ==
LOC: UCCORT 14:37
DX: J03.90 Acute tonsillitis, unspecified (principal); R52 Pain, unspecified; R53.83 Other fatigue
CPT/HCPCS: 87651; 99212; G0463

== ENCOUNTER 2019-03-10 20:49 | Emergency (ER) | payer BC ==
[2019-03-10] MEDS ORDERED: Ketorolac INJ* 30 MG/ML 1 ML VIAL IV PUSH ONE (21:50)
[2019-03-10] MEDS ORDERED: Diazepam SYRINGE* 5 MG/ML 2 ML SYRINGE (10 MG total) IV ONE (21:51)
--- NOTE | 2019-03-10 21:56 | ED ---
Back Pain - HPI Summary HPI Summary: Patient is a 38 y/o M presenting to ED with complaints of lower, right of center back pain. Pain has been present for the past 1-1.5 weeks. He notes that sitting up would exacerbate the pain. Patient was [place] [facility] states he was diagnosed with sciatica, was prescribed a steroid and cycobenzapine. With medications, he reports relief in pain. However, he has not been able to take his muscle relaxer in the past few days due to his work, noting that the medication makes him sleepy. This morning, when patient awoke and sat up, he experienced severe pain, claiming his back was in an "s-shape". Patient also states that his right leg goes numb from hip down and endorses recent onset of some tingling of right calf. Urinary Sx are denied. He notes Hx of back pain previously, around two years ago. Patient claims the only evaluation he received at the time was back x-rays. On triage, pain is rated 7/10, movement, standing, walking are noted to aggravate Sx, hot and cold therapy alleviates. Home medications and allergies are reviewed. - History of Current Complaint Chief Complaint: EDBackInjuryPain Stated Complaint: "BACK PAIN PER PT" Time Seen by Provider: 03/10/19 21:34 Hx Obtained From: Patient Onset/Duration: Lasting Weeks - 1-1.5 weeks ago, Still Present, Worse Since - this morning Onset/Duration: Started Weeks Ago - 1-1.5 weeks ago, Still Present Timing: Constant, Lasting Weeks - 1-1.5 weeks ago Back Pain Location: Is Discrete @ - lower back Severity Currently: Severe Pain Intensity: 7 Pain Scale Used: 0-10 Numeric Aggravating Symptom(s): Movement, Bending, Walking Alleviating Symptom(s): Heat, Cold, Other - prescribed medications Associated Signs And Symptoms: Positive: Numbness - right leg, Tingling - right calf, Other - urinary sx denied. Negative: Bladder Incontinence, Bowel Incontinence - Allergies/Home Medications Allergies/Adverse Reactions: Allergies Allergy/AdvReac Type Severity Reaction Status Date / Time No Known Allergies Allergy Verified 03/10/19 20:52 PMH/Surg Hx/FS Hx/Imm Hx Endocrine/Hematology History: Denies: Hx Diabetes, Hx Thyroid Disease Cardiovascular History: Reports: Hx Hypertension - ON MEDS Respiratory History: Denies: Hx Asthma, Hx Chronic Obstructive Pulmonary Disease (COPD) GI History: Denies: Hx Ulcer Sensory History: Denies: Hx Deafness Neurological History: Reports: Other Neuro Impairments/Disorders - concussions Denies: Hx Developmental Delay Psychiatric History: Reports: Hx Anxiety - Surgical History Surgery Procedure, Year, and Place: WISDOM TOOTH EXTRACTION, AGE 19 Infectious Disease History: Yes Infectious Disease History: Reports: Hx Clostridium Difficile, Hx Shingles Denies: Hx Hepatitis, Hx Human Immunodeficiency Virus (HIV), Hx of Known/ Suspected MRSA, Hx Tuberculosis, Hx Known/Suspected VRE, Hx Known/Suspected VRSA , History Other Infectious Disease, Traveled Outside the [place] in Last 30 Days - Family History Known Family History: Positive: Hypertension Negative: Cardiac Disease, Diabetes - Social History Alcohol Use: Rare Substance Use Type: Reports: None Smoking Status (MU): Never Smoked Tobacco Review of Systems Positive: no symptoms reported - NO URINARY SYMPTOMS Musculoskeletal: Other - POSITIVE - BACK PAIN Neurological: Other - POSITIVE - RIGHT CALF TINGLING Positive: Numbness - RIGHT LEG All Other Systems Reviewed And Are Negative: Yes Physical Exam - Summary Physical Exam Summary: VITAL SIGNS: Reviewed. GENERAL: Patient is a well-developed and nourished male who is lying comfortable in the stretcher. Patient is not in any acute respiratory distress. Lumbar tenderness is noted. HEAD AND FACE: No signs of trauma. No ecchymosis, hematomas or skull depressions. No sinus tenderness. EYES: PERRLA, EOMI x 2, No injected conjunctiva, no nystagmus. EARS: Hearing grossly intact. Ear canals and tympanic membranes are within normal limits. MOUTH: Oropharynx within normal limits. NECK: Supple, trachea is midline, no adenopathy, no JVD, no carotid bruit, no c- spine tenderness, neck with full ROM CHEST: Symmetric, no tenderness at palpation LUNGS: Clear to auscultation bilaterally. No wheezing or crackles. CVS: Regular rate and rhythm, S1 and S2 present, no murmurs or gallops appreciated. ABDOMEN: Soft, non-tender. No signs of distention. No rebound no guarding, and no masses palpated. Bowel sounds are normal. EXTREMITIES: No edema, no cyanosis or clubbing. Straight leg raise test is positive at 30 degrees on the right, all else normal. NEURO: Alert and oriented x 3. No acute neurological deficits. Speech is normal and follows commands. SKIN: Dry and warm Triage Information Reviewed: Yes Vital Signs On Initial Exam: Initial Vitals Temp Pulse Resp BP Pulse Ox 98.4 F 71 16 171/106 97 03/10/19 20:51 03/10/19 20:51 03/10/19 20:51 03/10/19 20:51 03/10/19 20:51 Vital Signs Reviewed: Yes Diagnostics - Vital Signs Vital Signs Temp Pulse Resp BP Pulse Ox 03/10/19 20:51 98.4 F 71 16 171/106 97 - Laboratory Lab Statement: Any lab studies that have been ordered have been reviewed, and results considered in the medical decision making process. - CT LUMBAR SPINE CT CT Interpretation Completed By: Radiologist - LUMBAR SPINE CT IMPRESSION: 1. No acute osseous abnormality. 2. MRI may be considered. THIS REPORT WAS REVIEWED BY DR. NG. Re-Evaluation - Re-Evaluation First Eval Re-Evaluation Time: 00:28 Comment: Results of lumbar spine CT were discussed with the patient. Patient will be discharged to home with neurosurgery follow up. He is agreeable with this. Back Pain Course/Dx - Course Course Of Treatment: Patient is a 38 y/o M presenting to ED with complaints of lower, right of center back pain. Pain has been present for the past 1-1.5 weeks. He notes that sitting up would exacerbate the pain. Patient was [place] [facility], states he was diagnosed with sciatica, was prescribed a steroid and cycobenzapine. With medications, he reports relief in pain. However , he has not been able to take his muscle relaxer in the past few days due to his work, noting that the medication makes him sleepy. This morning, when patient awoke and sat up, he experienced severe pain, claiming his back was in an "s-shape". Patient also states that his right leg goes numb from hip down and endorses recent onset of some tingling of right calf. Urinary Sx are denied. He notes Hx of back pain previously, around two years ago. Patient claims the only evaluation he received at the time was back x-rays. On physical exam, lumbar tenderness is noted, straight leg raise test on right is positive at 30 degrees. During ED course, patient received morphine 4 mg IV, toradol 15 mg IV, and valium [address] IMPRESSION: 1. No acute osseous abnormality. 2. MRI may be considered. Results of lumbar spine CT were discussed with the patient. Patient will be discharged to home with neurosurgery follow up. He is agreeable with this. - Diagnoses Provider Diagnoses: Back pain Discharge - Sign-Out/Discharge Documenting (check all that apply): Patient Departure - DISCHARGE Patient Received Moderate/Deep Sedation with Procedure: No - Discharge Plan Condition: Stable Disposition: HOME Prescriptions: oxyCODONE/Acetamin 5/325 MG* [Percocet 5/325 TAB*] 1 tab PO Q6H PRN #14 tab MDD 4 PRN Reason: Pain Patient Education Materials: Back Pain (ED) Referrals: Aris Troy MD [Primary Care Provider] - 2 Days Bienvenido Rowley MD [Medical Doctor] - 2 Days Additional Instructions: PLEASE RETURN TO THE ED IMMEDIATELY FOR WORSENING OR CONCERNING SYMPTOMS. FOLLOW UP WITH NEUROSURGERY IN TWO DAYS. - Attestation Statements Document Initiated by Scribe: Yes Documenting Scribe: PENELOPE GRADY Provider For Whom Scribe is Documenting (Include Credential): GUZMAN NG MD Scribe Attestation: IPENELOPE, scribed for GUZMAN NG MD on 03/11/19 at 0112. Status of Scribe Document: Ready
[2019-03-10] MEDS ORDERED: Diazepam INJ (NF) 5 MG/ML 10 ML VIAL (50 MG TOTAL) IV ONE (23:00)
[2019-03-11] MEDS ORDERED: Morphine 4 MG/ML VIAL (1 ml) 4 MG/ML VIAL IV ONE ×2 (00:21→00:23)
[2019-03-11 00:52] VITALS: BP 163/114
== END 2019-03-11 00:51 | disposition home or self-care (01) ==
LOC: ED 20:49
DX: M54.5 Low back pain (principal); R20.0 Anesthesia of skin; R20.2 Paresthesia of skin; I10 Essential (primary) hypertension
CPT/HCPCS: 72131; 96374; 96375; 99283; J1885; J2270; J3360

== ENCOUNTER 2019-03-11 11:43 | Emergency (ER) | payer SELFPAY ==
--- NOTE | 2019-03-11 12:06 | ED ---
Back Pain - HPI Summary HPI Summary: The patient is a 38 y/o M presenting to [facility] accompanied by with a chief complaint of increased low back pain this morning. He states he was here last night for similar back pain, and he was told he had two herniated discs, despite negative reading on CT. He felt okay when he left last night, but this morning he was in more pain. He was getting ready to go to the pharmacy to bulk picker his medications, but as he went to sit down, he heard a "pop" in his back, and the pain severely increased as he was unable to move. The pain is currently rated 10/10 in severity. Any movement aggravates the pain, and rest somewhat alleviates the pain. He additionally c/o BLE numbness. - History of Current Complaint Chief Complaint: EDBackInjuryPain Stated Complaint: SOMETHING "POPPED" BACK PAIN PER PT Time Seen by Provider: 03/11/19 12:02 Hx Obtained From: Patient Onset/Duration: Still Present, Worse Since - this morning Onset/Duration: Still Present Timing: Lasting Hours Back Pain Location: Is Diffuse - low back Severity Initially: Severe Severity Currently: Severe Pain Intensity: 10 Pain Scale Used: 0-10 Numeric Character: Sharp Aggravating Symptom(s): Movement Alleviating Symptom(s): Rest Associated Signs And Symptoms: Positive: Numbness - in BLE - Allergies/Home Medications Allergies/Adverse Reactions: Allergies Allergy/AdvReac Type Severity Reaction Status Date / Time No Known Allergies Allergy Verified 03/11/19 12:10 PMH/Surg Hx/FS Hx/Imm Hx Endocrine/Hematology History: Denies: Hx Diabetes, Hx Thyroid Disease Cardiovascular History: Reports: Hx Hypertension - ON MEDS Respiratory History: Denies: Hx Asthma, Hx Chronic Obstructive Pulmonary Disease (COPD) GI History: Denies: Hx Ulcer Sensory History: Denies: Hx Deafness Neurological History: Reports: Other Neuro Impairments/Disorders - concussions Denies: Hx Developmental Delay Psychiatric History: Reports: Hx Anxiety - Surgical History Surgery Procedure, Year, and Place: WISDOM TOOTH EXTRACTION, AGE 19 Infectious Disease History: No Infectious Disease History: Reports: Hx Clostridium Difficile, Hx Shingles Denies: Hx Hepatitis, Hx Human Immunodeficiency Virus (HIV), Hx of Known/ Suspected MRSA, Hx Tuberculosis, Hx Known/Suspected VRE, Hx Known/Suspected VRSA , History Other Infectious Disease, Traveled Outside the [place] in Last 30 Days - Family History Known Family History: Positive: Hypertension Negative: Cardiac Disease, Diabetes - Social History Alcohol Use: Rare Hx Substance Use: No Substance Use Type: Reports: None Hx Tobacco Use: No Smoking Status (MU): Never Smoked Tobacco Do You Chew or Dip Tobacco: No Have You Chewed or Dipped Tobacco in the LAST YEAR: No Have You Smoked in the Last Year: No Review of Systems Positive: Other - back pain Positive: Numbness - in BLE All Other Systems Reviewed And Are Negative: Yes Physical Exam - Summary Physical Exam Summary: VITAL SIGNS: Reviewed. GENERAL: Patient is a well-developed and nourished male who is lying comfortable in the stretcher. Patient is not in any acute respiratory distress. HEAD AND FACE: No signs of trauma. No ecchymosis, hematomas or skull depressions. No sinus tenderness. EYES: PERRLA, EOMI x 2, No injected conjunctiva, no nystagmus. EARS: Hearing grossly intact. Ear canals and tympanic membranes are within normal limits. MOUTH: Oropharynx within normal limits. NECK: Supple, trachea is midline, no adenopathy, no JVD, no carotid bruit, no c- spine tenderness, neck with full ROM. CHEST: Symmetric, no tenderness at palpation LUNGS: Clear to auscultation bilaterally. No wheezing or crackles. CVS: Regular rate and rhythm, S1 and S2 present, no murmurs or gallops appreciated. ABDOMEN: Soft, non-tender. No signs of distention. No rebound no guarding, and no masses palpated. Bowel sounds are normal. EXTREMITIES: Paraspinal muscle tenderness in the right side of the lumbar spine. Tenderness in right gluteus. Positive leg raise at 30 degrees. No edema, no cyanosis or clubbing. NEURO: Alert and oriented x 3. No acute neurological deficits. Speech is normal and follows commands. SKIN: Dry and warm. RECTAL: Good sphincter tone. Triage Information Reviewed: Yes Vital Signs On Initial Exam: Initial Vitals Temp Pulse Resp BP Pulse Ox 97.7 F 80 22 209/126 97 03/11/19 11:44 03/11/19 11:44 03/11/19 11:44 03/11/19 11:44 03/11/19 11:44 Vital Signs Reviewed: Yes Diagnostics - Vital Signs Vital Signs Temp Pulse Resp BP Pulse Ox 03/11/19 11:44 97.7 F 80 22 209/126 97 - Laboratory Lab Statement: Any lab studies that have been ordered have been reviewed, and results considered in the medical decision making process. Re-Evaluation - Re-Evaluation First Eval Re-Evaluation Time: 13:50 Change: Improved Comment: The patient is feeling better after pain medication. Second Eval Re-Evaluation Time: 14:20 Change: Improved Comment: I discussed discharge home with the patient since he is feeling better. Back Pain Course/Dx - Course Assessment/Plan: The patient is a 38 y/o M presenting to [facility] accompanied by with a chief complaint of increased low back pain this morning. He states he was here last night for similar back pain, and he was told he had two herniated discs, despite negative reading on CT. He felt okay when he left last night, but this morning he was in more pain. He was getting ready to go to the pharmacy to bulk picker his medications, but as he went to sit down, he heard a "pop " in his back, and the pain severely increased as he was unable to move. The pain is currently rated 10/10 in severity. Any movement aggravates the pain, and rest somewhat alleviates the pain. He additionally c/o BLE numbness. Patient denies any urinary or fecal dysfunction. The rectal exam the patient has a good sphincter tone. The patient does have any saddle anesthesia. The lumbar spine CT done yesterday showed no acute pathology. Therefore the patient was given Toradol, Decadron, Norflex and Morphine for the pain. After these medications were given, the patients symptoms have significantly improved. He reports that the pain is only 1-2 out of 10. The patient is able to ambulate with minimal pain; therefore, the patient was discharged home with follow-up with PCP. I discussed all the findings and test results with the patient. Patient was instructed to return to the emergency room immediately if any of the symptoms return worsens. Plan of care was discussed with the patient and understands and agrees. All questions were answered at patient satisfaction. There were no further complaints or concerns. Lung exam before discharge: CTA B/ L. Good air exchange. No wheezing or crackles heard. CVS: S1 and S2 present. No murmurs appreciated. Patient is alert and oriented x 3. Patient is hemodynamically stable. Patient will be discharged home with follow up with PCP in the next 2-3 days. - Diagnoses Provider Diagnoses: Back pain Discharge - Sign-Out/Discharge Documenting (check all that apply): Patient Departure - Patient will be discharged home. Patient Received Moderate/Deep Sedation with Procedure: No - Discharge Plan Condition: Stable Disposition: HOME Patient Education Materials: Back Pain (ED) Forms: *Work Release Referrals: Aris Troy MD [Primary Care Provider] - 3 Days Additional Instructions: Follow up with your primary care provider in 2-3 days. RETURN TO THE EMERGENCY DEPARTMENT FOR ANY NEW OR WORSENING SYMPTOMS. - Billing Disposition and Condition Condition: STABLE Disposition: Home - Attestation Statements Document Initiated by Fabián: Yes Documenting Scribe: Cat Lauren Provider For Whom Fabián is Documenting (Include Credential): Dr. Kenroy Corona MD Scribe Attestation: Cat Johnson scribed for Dr. Kenroy Corona MD on 03/11/19 at 1438. Scribe Documentation Reviewed: Yes Provider Attestation: The documentation as recorded by the Cat donald accurately reflects the service I personally performed and the decisions made by me, Dr. Kenroy Corona MD Status of Scribe Document: Ready
[2019-03-11] MEDS ORDERED: Dexamethasone IV* 4 MG/ML 1 ML (4 MG) IV SLOW PU ONE (12:14)
[2019-03-11] MEDS ORDERED: Orphenadrine Citrate IV* 30 MG/ML 2 ML VIAL IV ONE (12:14)
[2019-03-11] MEDS ORDERED: Ketorolac INJ* 30 MG/ML 1 ML VIAL IV PUSH ONE (12:14)
[2019-03-11] MEDS ORDERED: Morphine 4 MG/ML VIAL (1 ml) 4 MG/ML VIAL IV ONE (12:14)
[2019-03-11] MEDS ORDERED: NS 0.9% 1000 ML** 1,000 ML IV ONE (12:15)
[2019-03-11 14:38] VITALS: BP 177/114
== END 2019-03-11 14:38 | disposition home or self-care (01) ==
LOC: ED 11:43
DX: M54.5 Low back pain (principal); R20.0 Anesthesia of skin; I10 Essential (primary) hypertension
CPT/HCPCS: 96361; 96374; 96375; 99283; J1100; J1885; J2270; J2360

== ENCOUNTER 2019-05-14 13:29 | Emergency (ER) | payer BC ==
[2019-05-14 15:30] VITALS: BP 179/90
--- NOTE | 2019-05-15 08:05 | ED ---
Back Pain - HPI Summary HPI Summary: Pt. is a 38 y.o male who presents to the ER for ongoing low back pain with pain and tingling into right leg. Pt. states sxs have been intermittent for a few months. Denies recent injury or falls. Pt. states he has been going to PT and sxs are not improving. Pt. states he called his PCP stating sxs were getting worse and he was referred to the ER. Pt. denies bowel or bladder incontinence or retention. Denies fever, abd. pain, urinary sxs, cp, sob. Sxs are mild in severity. Movement makes sxs worse. Nothing makes sxs better. - History of Current Complaint Chief Complaint: EDBackInjuryPain Stated Complaint: RT LEG NUMBNESS PER PT Time Seen by Provider: 05/14/19 14:14 Hx Obtained From: Patient Pain Intensity: 8 Pain Scale Used: 0-10 Numeric - Allergies/Home Medications Allergies/Adverse Reactions: Allergies Allergy/AdvReac Type Severity Reaction Status Date / Time atenolol Allergy Edema Verified 05/14/19 13:41 lisinopril Allergy See Comment Verified 05/14/19 13:41 PMH/Surg Hx/FS Hx/Imm Hx Previously Healthy: Yes Endocrine/Hematology History: Denies: Hx Diabetes, Hx Thyroid Disease Cardiovascular History: Reports: Hx Hypertension - ON MEDS Respiratory History: Denies: Hx Asthma, Hx Chronic Obstructive Pulmonary Disease (COPD) GI History: Denies: Hx Ulcer Sensory History: Denies: Hx Deafness Neurological History: Reports: Other Neuro Impairments/Disorders - concussions Denies: Hx Developmental Delay Psychiatric History: Reports: Hx Anxiety - Surgical History Surgery Procedure, Year, and Place: WISDOM TOOTH EXTRACTION, AGE 19 Infectious Disease History: No Infectious Disease History: Reports: Hx Clostridium Difficile, Hx Shingles Denies: Hx Hepatitis, Hx Human Immunodeficiency Virus (HIV), Hx of Known/ Suspected MRSA, Hx Tuberculosis, Hx Known/Suspected VRE, Hx Known/Suspected VRSA , History Other Infectious Disease, Traveled Outside the [place] in Last 30 Days - Family History Known Family History: Positive: Hypertension Negative: Cardiac Disease, Diabetes - Social History Alcohol Use: Rare Hx Substance Use: No Substance Use Type: Reports: None Hx Tobacco Use: No Smoking Status (MU): Never Smoked Tobacco Have You Smoked in the Last Year: No Review of Systems Constitutional: Negative Negative: Fever, Chills Cardiovascular: Negative Respiratory: Negative Gastrointestinal: Negative Negative: Abdominal Pain Genitourinary: Negative Negative: flank pain, incontinence Positive: Other - low back pain that radiates into right leg. Skin: Negative Positive: Paresthesia All Other Systems Reviewed And Are Negative: Yes Physical Exam Triage Information Reviewed: Yes Vital Signs On Initial Exam: Initial Vitals Temp Pulse Resp BP Pulse Ox 98.3 F 76 16 176/118 96 05/14/19 13:37 05/14/19 13:37 05/14/19 13:37 05/14/19 13:37 05/14/19 13:37 Vital Signs Reviewed: Yes Appearance: Positive: Well-Appearing - Pt. lying on bed in NAD. SO present. Skin: Positive: Warm, Dry Head/Face: Positive: Normal Head/Face Inspection Eyes: Positive: Normal, EOMI Neck: Positive: Supple Respiratory/Lung Sounds: Positive: Clear to Auscultation, Breath Sounds Present Cardiovascular: Positive: Normal, RRR Abdomen Description: Positive: Nontender, Soft Musculoskeletal: Positive: Other - No midline tenderness. Mild pain to right SI joint. 5/5 strength in bilateral LEs. Neurological: Positive: Normal, CN Intact II-III Diagnostics - Vital Signs Vital Signs Temp Pulse Resp BP Pulse Ox 05/14/19 15:28 97.6 F 75 16 179/90 95 05/14/19 13:37 98.3 F 76 16 176/118 96 - Laboratory Lab Statement: Any lab studies that have been ordered have been reviewed, and results considered in the medical decision making process. Back Pain Course/Dx - Course Course Of Treatment: Pt. with ongoing lumbar radiculopathy. No neuro deficits or evidence of cauda equina syndrome. Will place on steroids. Pt. denies pain medication. Recommend f.u with pcp for referral to neurosx. Given warning signs for return. Pt understands and agrees with plan. - Diagnoses Differential Diagnosis/HQI/PQRI: Positive: Compressive Cord Syndrome, Epidural Abscess, Herniated Disc, Renal Colic, Strain, Sprain Provider Diagnoses: Lumbar radiculopathy Discharge - Sign-Out/Discharge Documenting (check all that apply): Patient Departure Patient Received Moderate/Deep Sedation with Procedure: No - Discharge Plan Condition: Good Disposition: HOME Prescriptions: Hydrocodone/Acetaminophen [Hydrocodone-Acetamin 5-325 mg] 1 each PO Q6H #9 tablet MDD 4 predniSONE [Prednisone 20 MG TAB] 20 mg PO ONCE #10 tablet Patient Education Materials: Lumbar Radiculopathy (ED) Referrals: Aris Troy MD [Primary Care Provider] - Bienvenido Rowley MD [Medical Doctor] - Additional Instructions: Call PCP today for referral to neurosurgery Medication as directed Apply warm compresses and avoid heavy lifting Return to ER for difficulty picking up feet, bowel or bladder incontinence or retention or if concerned - Billing Disposition and Condition Condition: GOOD Disposition: Home
== END 2019-05-14 15:28 | disposition home or self-care (01) ==
LOC: ED 13:29
DX: M54.16 Radiculopathy, lumbar region (principal); I10 Essential (primary) hypertension; Z88.8 Allergy status to other drugs, medicaments and biological substances
CPT/HCPCS: 99282